=== PATIENT | female | born 2000 | race Caucasian/White ===

== ENCOUNTER 2020-12-08 04:15 | Inpatient (IN) ==
[2020-12-08 04:55] LABS: Basophils # (auto) 0.04 K/uL (0-0.2); Basophils % (auto) 0.5 %; Eosinophils # (auto) 0.13 K/uL (0-0.5); Eosinophils % (auto) 1.6 %; Hematocrit (blood only) 41.5 % (37-47); Hemoglobin 14.5 g/dL (12.0-16.0); Immature Granulocytes # (auto) 0.01 K/uL (0.00-0.02); Immature Granulocytes % (auto) 0.1 %; Lymphocytes # (auto) 2.33 K/uL (1.2-3.4); Lymphocytes % (auto) 29.4 %; Mean Corpuscular Hemoglobin 32.1 pg (25-34); Mean Corpuscular Hgb Conc 34.9 g/dL (32-36); Mean Corpuscular Volume 91.8 fL (80-100); Mean Platelet Volume 10.5 fL (7.4-10.4); Monocytes # (auto) 0.47 K/uL (0.11-0.59); Monocytes % (auto) 5.9 %; Neutrophils # (auto) 4.95 K/uL (1.4-6.5); Neutrophils % (auto) 62.5 %; Platelet Count 235 K/uL (130-400); RDW Coefficient of Variation 11.9 % (11.5-14.5); RDW Standard Deviation 40.1 fL (36.4-46.3); Red Blood Count 4.52 M/uL (4.2-5.4); White Blood Count 7.93 K/uL (4.8-10.8)
--- NOTE | 2020-12-08 04:58 | Emergency Department Note ---
History of Present Illness General Chief complaint: Mental Health Evaluation Stated complaint: MENTAL HEALTH EVAL, SUICIDAL Time Seen by Provider: 12/08/20 04:23 Source: patient Mode of arrival: ambulatory Limitations: intoxication History of Present Illness Provider complaint: Mental health evaluation Maximum Pain Intensity: 5 This is a 20-year-old female who presents for mental health evaluation. Patient admits to history of anxiety and depression. She does not currently see any mental health providers. Patient states she has previously cut "in order to feel something". Patient states she otherwise frequently feels numb. Patient states this evening she was intoxicated, and used a serrated kitchen knife to cut her right arm. Patient does admit to suicidal ideation. Patient denies HI, paranoia, or hallucinations. Patient states she does use alcohol regularly and does feel it is a problem. Patient states she smokes marijuana however does not use any other drugs. Patient states there is a history of drug and alcohol abuse in her family. Patient states she does not use any medications for anxiety or depression. Patient very tearful during exam at bedside. Pt seen during a time of high acuity and national emergency pandemic while wearing PPE. Home Medications Medication Instructions Recorded Confirmed Type No Known Home Medications 12/08/20 12/08/20 History Allergies Allergy/AdvReac Type Severity Reaction Status Date / Time seafood Allergy Vomiting Uncoded 12/08/20 04:23 Past Med/Surg History Medical History (Updated 12/08/20 @ 22:17 by Haven Dowell DO) Alcohol abuse Depression Generalized anxiety disorder PTSD (post-traumatic stress disorder) Suicidal ideation Social History Smoking Status: Current every day smoker Tobacco Type: Cigarettes and E-cigarettes / Vaping Preferred Language: Macedonian Communication Ability: Effective [employer] Required: No Beliefs That Will Affect Care: None Feels Safe at Home: Yes Assistive Devices: Glasses Review of Systems See HPI for pertinent positives & negatives. and A total of 10 systems reviewed and were otherwise negative Physical Exam Vital Signs Vital Signs - 24 hr 12/08/20 04:17 12/08/20 06:14 Temperature 36.9 C Temperature Source Temporal Artery Scan Pulse Rate 106 H Pulse Rate [Finger] 62 Respiratory Rate 20 18 Respiratory Effort / Characteristics Non-Labored Spontaneous Non-Labored Spontaneous Respiratory Depth Normal Normal Respiratory Pattern Regular Blood Pressure 158/97 H Blood Pressure [Right Arm] 113/76 Blood Pressure Mean 117 Blood Pressure Mean [Right Arm] 88 Blood Pressure Position Sitting Pulse Oximetry 96 97 Oxygen Delivery Method Room Air Room Air Sepsis Recent Fever Within 48 Hours No Sepsis New/Unexplained Change in Mental Status No Sepsis Action Taken by Nursing No Action Required GENERAL: alert, well appearing, well nourished, no distress, non-toxic, tearful EYE EXAM: normal conjunctiva, PERRL and EOM's grossly intact OROPHARYNX: no exudate, no erythema, lips, buccal mucosa, and tongue normal and mucous membranes are moist NECK: supple, no nuchal rigidity, no adenopathy, non-tender LUNGS: Clear to auscultation. Normal chest wall mechanics, no w/r/r HEART: no murmurs, S1 normal and S2 normal ABDOMEN: abdomen soft, non-tender, normo-active bowel sounds, no masses, no rebound or guarding. BACK: Back is symmetrical on inspection and there is no deformity, no midline tenderness, no CVA tenderness. SKIN: no rashes and no bruising UPPER EXTREMITIES: upper extremities are grossly normal. FROM, nml pulses b/l. Multiple superficial lacerations to the ventral right forearm. No bleeding. LOWER EXTREMITIES: No pitting edema. FROM, nml pulses b/l. NEURO EXAM: Normal sensorium, cranial nerves II-XII grossly intact, normal speech, no gross weakness of arms, no gross weakness of legs. Gross sensation intact. Course Course 725: Pt being evaluated by psych corrections caseworker at this time. Pt signed out to Dr. Ngo at change of shift. Labs reassuring. Medically cleared from etoh at 7am. I do feel pt would benefit from inpatient evaluation at this time given etoh use in addition to depression/anxiety, poor social support, and no current mental health providers. Administered Medications Bacitracin (Bacitracin Oint 15 Gm Tube) 1 appln EXT BID PRN PRN Reason: wrist lacerations Stop: 01/07/21 10:52 Last Admin: 12/08/20 20:15 Dose: 1 appln Documented by: [id number] Hydroxyzine HCl (Hydroxyzine Hcl 25 Mg Tab) 25 mg PO Q4H PRN PRN Reason: Anxiety Stop: 01/07/21 09:36 Last Admin: 12/08/20 20:19 Dose: 25 mg Documented by: [id number] Medical Decision Making Differential Diagnosis Differential diagnoses considered include mood disorder, infection, hypoglycemia, electrolyte abnormalities, cardiac sources, intracerebral event, toxicologic, neurologic, as well as others. Medical Records Attestation: I reviewed the patient's medical records. Home Medications Current Medication List: was personally reviewed by me Laboratory Data Attestation: I reviewed the patient's lab results. Result diagrams: 12/08/20 04:40 12/08/20 04:40 Lab Results 12/08/20 12/08/20 12/08/20 Range/Units 04:40 04:40 04:40 WBC 7.93 (4.8-10.8) K/uL RBC 4.52 (4.2-5.4) M/uL Hgb 14.5 (12.0-16.0) g/dL Hct 41.5 (37-47) % MCV 91.8 (80-100) fL MCH 32.1 (25-34) pg MCHC 34.9 (32-36) g/dL RDW Std Deviation 40.1 (36.4-46.3) fL RDW Coeff of David 11.9 (11.5-14.5) % Plt Count 235 (130-400) K/uL MPV 10.5 H (7.4-10.4) fL Immature Gran % (Auto) 0.1 % Neut % (Auto) 62.5 % Lymph % (Auto) 29.4 % Sevier % (Auto) 5.9 % Eos % (Auto) 1.6 % Baso % (Auto) 0.5 % Neut # (Auto) 4.95 (1.4-6.5) K/uL Lymph # (Auto) 2.33 (1.2-3.4) K/uL Sevier # (Auto) 0.47 (0.11-0.59) K/uL Eos # (Auto) 0.13 (0-0.5) K/uL Baso # (Auto) 0.04 (0-0.2) K/uL Immature Gran # (Auto) 0.01 (0.00-0.02) K/uL Sodium 144 (136-145) mmol/L Potassium 3.9 (3.5-5.1) mmol/L Chloride 112 H (98-107) mmol/L Carbon Dioxide 24 (21-32) mmol/L Anion Gap 8.0 (3-11) BUN 11 (7-18) mg/dl Creatinine 0.83 (0.6-1.2) mg/dl Est Cr Clr Drug Dosing 102.2 ml/min Est GFR ( Amer) 116.8 Est GFR (Non-Af Amer) 100.8 BUN/Creatinine Ratio 13.3 (10-20) Glucose 90 (70-99) mg/dl Calcium 9.0 (8.5-10.1) mg/dl Total Bilirubin 0.3 (0.2-1) mg/dl AST 14 L (15-37) U/L ALT 25 (12-78) U/L Alkaline Phosphatase 55 (45-117) U/L Total Protein 8.5 H (6.4-8.2) gm/dl Albumin 4.4 (3.4-5.0) gm/dl Globulin 4.1 H (2.5-4.0) gm/dl Albumin/Globulin Ratio 1.1 (0.9-2) TSH 2.550 (0.300-4.500) uIu/ml HCG, Qual (Negative) Urine Color Urine Appearance (Clear) Urine pH (4.5-7.5) Ur Specific Thurmond (1.000-1.030) Urine Protein (Negative) Urine Glucose (UA) (Negative) Urine Ketones (Negative) Urine Blood (Negative) Urine Nitrite (Negative) Urine Bilirubin (Negative) Urine Urobilinogen (Negative) Ur Leukocyte Esterase (Negative) Salicylates < 1.7 L (2.8-20) mg/dl Urine Opiates Screen (Neg) Ur Methadone, Qual (Neg) Acetaminophen < 2 L (10-30) ug/ml Urine Barbiturates (Neg) Ur Phencyclidine (PCP) (Neg) U Amphetamin/Meth Scrn (Neg) MDMA (Ecstasy) Screen (Neg) U Benzodiazepines Scrn (Neg) Ur Cocaine Metabolite (Neg) U Marijuana (THC) Screen (Neg) Ethyl Alcohol mg/dL (0-3) mg/dl COVID-19 Eval Order SARS-CoV-2, RNA, NAAT (NEGATIVE) 12/08/20 12/08/20 12/08/20 Range/Units 04:40 04:40 05:05 WBC (4.8-10.8) K/uL RBC (4.2-5.4) M/uL Hgb (12.0-16.0) g/dL Hct (37-47) % MCV (80-100) fL MCH (25-34) pg MCHC (32-36) g/dL RDW Std Deviation (36.4-46.3) fL RDW Coeff of David (11.5-14.5) % Plt Count (130-400) K/uL MPV (7.4-10.4) fL Immature Gran % (Auto) % Neut % (Auto) % Lymph % (Auto) % Sevier % (Auto) % Eos % (Auto) % Baso % (Auto) % Neut # (Auto) (1.4-6.5) K/uL Lymph # (Auto) (1.2-3.4) K/uL Sevier # (Auto) (0.11-0.59) K/uL Eos # (Auto) (0-0.5) K/uL Baso # (Auto) (0-0.2) K/uL Immature Gran # (Auto) (0.00-0.02) K/uL Sodium (136-145) mmol/L Potassium (3.5-5.1) mmol/L Chloride (98-107) mmol/L Carbon Dioxide (21-32) mmol/L Anion Gap (3-11) BUN (7-18) mg/dl Creatinine (0.6-1.2) mg/dl Est Cr Clr Drug Dosing ml/min Est GFR ( Amer) Est GFR (Non-Af Amer) BUN/Creatinine Ratio (10-20) Glucose (70-99) mg/dl Calcium (8.5-10.1) mg/dl Total Bilirubin (0.2-1) mg/dl AST (15-37) U/L ALT (12-78) U/L Alkaline Phosphatase (45-117) U/L Total Protein (6.4-8.2) gm/dl Albumin (3.4-5.0) gm/dl Globulin (2.5-4.0) gm/dl Albumin/Globulin Ratio (0.9-2) TSH (0.300-4.500) uIu/ml HCG, Qual Negative (Negative) Urine Color Urine Appearance (Clear) Urine pH (4.5-7.5) Ur Specific Thurmond (1.000-1.030) Urine Protein (Negative) Urine Glucose (UA) (Negative) Urine Ketones (Negative) Urine Blood (Negative) Urine Nitrite (Negative) Urine Bilirubin (Negative) Urine Urobilinogen (Negative) Ur Leukocyte Esterase (Negative) Salicylates (2.8-20) mg/dl Urine Opiates Screen (Neg) Ur Methadone, Qual (Neg) Acetaminophen (10-30) ug/ml Urine Barbiturates (Neg) Ur Phencyclidine (PCP) (Neg) U Amphetamin/Meth Scrn (Neg) MDMA (Ecstasy) Screen (Neg) U Benzodiazepines Scrn (Neg) Ur Cocaine Metabolite (Neg) U Marijuana (THC) Screen (Neg) Ethyl Alcohol mg/dL 150.0 H (0-3) mg/dl COVID-19 Eval [email or web address] SARS-CoV-2, RNA, NAAT (NEGATIVE) 12/08/20 12/08/20 12/08/20 Range/Units 05:05 05:50 05:50 WBC (4.8-10.8) K/uL RBC (4.2-5.4) M/uL Hgb (12.0-16.0) g/dL Hct (37-47) % MCV (80-100) fL MCH (25-34) pg MCHC (32-36) g/dL RDW Std Deviation (36.4-46.3) fL RDW Coeff of David (11.5-14.5) % Plt Count (130-400) K/uL MPV (7.4-10.4) fL Immature Gran % (Auto) % Neut % (Auto) % Lymph % (Auto) % Sevier % (Auto) % Eos % (Auto) % Baso % (Auto) % Neut # (Auto) (1.4-6.5) K/uL Lymph # (Auto) (1.2-3.4) K/uL Sevier # (Auto) (0.11-0.59) K/uL Eos # (Auto) (0-0.5) K/uL Baso # (Auto) (0-0.2) K/uL Immature Gran # (Auto) (0.00-0.02) K/uL Sodium (136-145) mmol/L Potassium (3.5-5.1) mmol/L Chloride (98-107) mmol/L Carbon Dioxide (21-32) mmol/L Anion Gap (3-11) BUN (7-18) mg/dl Creatinine (0.6-1.2) mg/dl Est Cr Clr Drug Dosing ml/min Est GFR ( Amer) Est GFR (Non-Af Amer) BUN/Creatinine Ratio (10-20) Glucose (70-99) mg/dl Calcium (8.5-10.1) mg/dl Total Bilirubin (0.2-1) mg/dl AST (15-37) U/L ALT (12-78) U/L Alkaline Phosphatase (45-117) U/L Total Protein (6.4-8.2) gm/dl Albumin (3.4-5.0) gm/dl Globulin (2.5-4.0) gm/dl Albumin/Globulin Ratio (0.9-2) TSH (0.300-4.500) uIu/ml HCG, Qual (Negative) Urine Color Yellow Urine Appearance Clear (Clear) Urine pH 5.5 (4.5-7.5) Ur Specific Thurmond 1.008 (1.000-1.030) Urine Protein Negative (Negative) Urine Glucose (UA) Negative (Negative) Urine Ketones Negative (Negative) Urine Blood Negative (Negative) Urine Nitrite Negative (Negative) Urine Bilirubin Negative (Negative) Urine Urobilinogen Negative (Negative) Ur Leukocyte Esterase Negative (Negative) Salicylates (2.8-20) mg/dl Urine Opiates Screen Neg (Neg) Ur Methadone, Qual Neg (Neg) Acetaminophen (10-30) ug/ml Urine Barbiturates Neg (Neg) Ur Phencyclidine (PCP) Neg (Neg) U Amphetamin/Meth Scrn Neg (Neg) MDMA (Ecstasy) Screen Neg (Neg) U Benzodiazepines Scrn Neg (Neg) Ur Cocaine Metabolite Neg (Neg) U Marijuana (THC) Screen Pos H (Neg) Ethyl Alcohol mg/dL (0-3) mg/dl COVID-19 Eval Order SARS-CoV-2, RNA, NAAT NEGATIVE (NEGATIVE) MDM Narrative THis is 20 yo who presents for mental health eval. Pt with act of self harm tonight by cutting and admits to SI at this time despite a prior hx of cutting. Denies HI/paranoia/hallucinations. Pt admits to regular ETOH use. Discussed labs. Pt evaluated by corrections caseworker. Signed out to Dr. Ngo at change of shift. Impression & Plan Depression, Generalized anxiety disorder, Alcohol abuse, Suicidal ideation, Intentional self-harm, Laceration of multiple sites of arm Discharge Plan Visit Data Chief Complaint: Mental Health Evaluation Stated Complaint: MENTAL HEALTH EVAL, SUICIDAL ED Provider: Rozina Ngo Discharge Problem: Depression, Generalized anxiety disorder, Alcohol abuse, Suicidal ideation, Intentional self-harm, Laceration of multiple sites of arm Patient Disposition: Admitted As Inpatient Discharge Problem: Depression Qualifiers: Depression Type: major depressive disorder Major depression recurrence: unspecified whether recurrent Active/Remission status: currently active Major depression episode severity: moderate Qualified Code(s): F32.1 - Major depressive disorder, single episode, moderate Laceration of multiple sites of arm Qualifiers: Encounter type: initial encounter Laterality: right Qualified Code(s): S41.111A - Laceration without foreign body of right upper arm, initial encounter
[2020-12-08 05:19] LABS: Albumin Level 4.4 gm/dl (3.4-5.0); BUN Creatinine Ratio 13.3 (10-20); Creatinine Clr Calc Pharmacy 102.2 ml/min; Est GFR (African American) 116.8; Est GFR (Non-African American) 100.8; Potassium 3.9 mmol/L (3.5-5.1)
[2020-12-08 05:23] LABS: Pregnancy Test, Serum Negative (Negative)
[2020-12-08 05:30] LABS: Albumin Globulin Ratio 1.1 (0.9-2); Bilirubin,Total 0.3 mg/dl (0.2-1); Globulin 4.1 gm/dl (2.5-4.0); Thyroid Stimulating Hormone 2.55 uIu/ml (0.300-4.500); Total Protein 8.5 gm/dl (6.4-8.2)
[2020-12-08 05:31] LABS: Acetaminophen < 2 ug/ml (10-30)
[2020-12-08 05:32] LABS: Salicylate < 1.7 mg/dl (2.8-20)
[2020-12-08 06:52] LABS: Appearance Urine Clear (Clear); Bilirubin Urine Negative (Negative); Blood Urine Negative (Negative); Color Urine Yellow; Glucose Urine UA Negative (Negative); Ketones Urine Negative (Negative); Leukocyte Esterase Urine Negative (Negative); Nitrite Urine Negative (Negative); Protein Urine Negative (Negative); Specific Gravity Urine 1.008 (1.000-1.030); Urobilinogen Urine Negative (Negative); pH Urine 5.5 (4.5-7.5)
[2020-12-08 06:57] LABS: Amphetamines+Metham, Urine Neg (Neg); Barbiturates, Urine Neg (Neg); Benzodiazepine, Urine Neg (Neg); Cocaine, Urine Neg (Neg); MDMA (Ecstacy), Urine Neg (Neg); Methadone, Urine Neg (Neg); Opiate, Urine Neg (Neg); Phencyclidine, Urine Neg (Neg)
[2020-12-08] MEDS ORDERED: MAGNESIUM HYDROXIDE SUSP 30 ML UDC PO PRN (09:37)
[2020-12-08] MEDS ORDERED: ALUMINUM/MAGNESIUM SUSP 30 ML UDC PO PRN (09:37)
[2020-12-08] MEDS ORDERED: SODIUM CHLORIDE 0.65% NA SOLN 45 ML (OCEAN) PRN (09:37)
[2020-12-08] MEDS ORDERED: ACETAMINOPHEN 325 MG TAB PO PRN (09:37)
[2020-12-08] MEDS ORDERED: BISMUTH SUBSALICYLATE LIQD 236 ML PO PRN (09:37)
[2020-12-08] MEDS ORDERED: hydrOXYzine HCl 25 MG TAB PO PRN (09:37)
--- NOTE | 2020-12-08 09:55 | Emergency Department Note ---
ED Visit Note I received this patient in signout at the change of shift from Dr. Dowell, pending mental health bed search. Patient was accepted to [facility] for inpatient psychiatric care. Please refer to previous documentation for further detail of the history, physical and visit. .
[2020-12-08] MEDS ORDERED: LORazepam 1 MG TAB PO PRN (10:44)
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
[2020-12-08] MEDS ORDERED: BACITRACIN OINT 15 GM TUBE EXT PRN (10:53)
[2020-12-08] MEDS ORDERED: NICOTINE 7 MG/24 HR TDSY TD PRN (15:10)
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
[2020-12-09] MEDS: ESCITALOPRAM OXALATE 10 MG TAB PO SCH (12:59)
[2020-12-10] MEDS: hydrOXYzine HCl 25 MG TAB PO PRN ×2 (00:57→23:06)
[2020-12-10] MEDS: ESCITALOPRAM OXALATE 10 MG TAB PO SCH (10:35)
[2020-12-10 11:02] LABS: Marijuana Quant, GCMS Urine 53 ng/mL (<5)
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
[2020-12-10] MEDS: NICOTINE POLACRILEX 2 MG GUM MT PRN (19:34)
[2020-12-11] MEDS: ESCITALOPRAM OXALATE 10 MG TAB PO SCH (09:06)
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
[2020-12-11] MEDS: NICOTINE POLACRILEX 2 MG GUM MT PRN (13:26)
[2020-12-12] MEDS: ESCITALOPRAM OXALATE 10 MG TAB PO SCH (09:00)
--- NOTE | 2020-12-12 11:09 | Discharge Summary ---
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 Type Established History Expanded Problem Focused Medical Decision Making Moderate Complexity Diagnoses Suicidal ideation R45.851 PTSD (post-traumatic stress disorder) F43.10 Depression F32.1 Active/Remission status: currently active Depression Type: major depressive disorder Major depression episode severity: moderate Major depression recurrence: unspecified whether recurrent Generalized anxiety disorder F41.1 Alcohol abuse F10.10 Time Spent (min) 60
== END 2020-12-12 13:30 | disposition home or self-care (01) | DRG 885 ==
LOC: ED 04:15 → 3S 09:37